=== PATIENT | female | born 1975 | race Caucasian/White ===

== ENCOUNTER → 2016-08-16 | Outpatient (CLI) | payer OTHER | END | disposition short-term general hospital (02) | LOC: CLORTH 09:16 | DX: S83.411A Sprain of medial collateral ligament of right knee, initial encounter (principal); Z98.890 Other specified postprocedural states ==

== ENCOUNTER → 2016-09-13 | Outpatient (CLI) | payer OTHER | END | disposition short-term general hospital (02) | LOC: CLORTH 07:42 | DX: S83.411D Sprain of medial collateral ligament of right knee, subsequent encounter (principal) ==